=== PATIENT | male | born 1990 | race Caucasian/White ===

== ENCOUNTER 2019-01-18 01:42 | Emergency (ER) | payer SELFPAY ==
[2019-01-18 01:42] VITALS: BP 145/96
[2019-01-18] MEDS ORDERED: LISD20CA4 PO (01:44)
[2019-01-18] MEDS ORDERED: FLUO-201 PO (01:44)
--- NOTE | 2019-01-18 01:47 | ER Report ---
History and Physical Time Seen By MD: 01:44 Hx. of Stated Complaint: PATIENT BROUGHT IN BY [employer] FOR RETIREMENT CLEARENCE AFTER BEING STOPPED DRIVING, PATIENT BLEW A .Evangelista. HPI/ROS CHIEF COMPLAINT: [facility] clearance HISTORY OF PRESENT ILLNESS: This is a 29-year-old male. Driving intoxicated and pulled over by the police. Blue 0.25 to, here for long-term clearance. Patient denies any medical problems or other issues. Allergies: Coded Allergies: penicillin G (Verified Allergy, Mild, 02/01/16) Home Meds Reported Medications Lisdexamfetamine Dimesylate (VYVANSE) 20 Mg Capsule, PO QDAY, CAPSULE 01/18/19 Fluoxetine Hcl (PROZAC) 10 Mg Capsule, PO QDAY, CAPSULE 01/18/19 Reviewed Nurses Notes: Yes Hx Smoking: No Smoking Status: Former Smoker Hx Substance Use Disorder: No Hx Alcohol Use: No Constitutional Vital Sign - Last 24 Hours 01/18/19 01:42 Temp 98.5 Pulse 107 Resp 16 B/P (MAP) 145/96 Pulse Ox 93 O2 Delivery Room Air Physical Exam General Appearance: Alert, intoxicated Eyes: Pupils equal and round, slight scleral injection. ENT: Normal oral mucosa. Moist mucous membranes. Tympanic membranes are normal. Neck: Neck is supple and non tender. Respiratory: Chest is non tender, lungs are clear to auscultation. Cardiac: regular rate and rhythm Gastrointestinal: Abdomen is soft and non tender, bowel sounds normal. Musculoskeletal: No pain in the back or extremities. Neuro: Alert, oriented, intoxicated but no other focal deficits noted. Skin: No rashes or lesions. DIFFERENTIAL DIAGNOSIS: After history and physical exam differential diagnosis was considered for alcohol intoxication Medical Decision Making ED Course/Re-evaluation ED Course No other problems noted, cleared to be discharged police to long-term Decision to Disposition Date: Jan 18, 2019 Decision to Disposition Time: 01:51 Depart Departure Latest Vital Signs Vital Signs Date Time Temp Pulse Resp B/P (MAP) Pulse Ox O2 Delivery O2 Flow Rate FiO2 01/18/19 01:42 98.5 107 16 145/96 93 Room Air Impression: Primary Impression: Alcohol intoxication Condition: Condition Unchanged Disposition: [facility] TO RETIREMENT/CORRECTIONAL F Patient Instructions: Alcohol Intoxication (ED) Problem Qualifiers Primary Impression: Alcohol intoxication Complication of substance-induced condition: uncomplicated Qualified Codes: F10.920 - Alcohol use, unspecified with intoxication, uncomplicated QUEENIE LOPEZ MD Jan 18, 2019 01:47
== END 2019-01-18 01:56 ==
LOC: ER 01:48
DX: F10.920 Alcohol use, unspecified with intoxication, uncomplicated (principal)
CPT/HCPCS: 99281